=== PATIENT | male | born 1990 | race Caucasian/White ===

== ENCOUNTER 2020-12-18 21:10 | Emergency (ER) | payer OTHER ==
[~2020-12-18] VITALS: Ht 175.3 cm; Wt 79.4 kg
[2020-12-18 21:22] VITALS: BP 138/76
--- NOTE | 2020-12-18 21:22 | NUR ---
TO BED AMBULATORY
--- NOTE | 2020-12-18 21:30 | NUR ---
PT. IS A 30 Y/O MALE THAT CAME INTO ED WITH C/O OF DOG BITE ON RIGHT CALF. HE STATES THAT THE INCIDENT HAPPENED AROUND 6:45PM-6:50PM WHEN HE WAS AT WORK. ON THE PAIN SCALE, HE RATES IT 3/10. HE DESCRIBES THE PAIN THROBBING PAIN. UPON ASSESSMENT, RIGHT CALF 2 GASHES/SCRATCHES AND REDNESS. AAOX4 WITH EVEN AND STEADY GAIT; HR EVEN AND REGULAR; PT DENIES ANY FEVER, CP, SOB, OR COUGH AT THIS TIME; VSS; PATIENT POSITIONED FOR COMFORT; HOB ELEVATED; BEDRAILS UP X2; BED DOWN. ER MD MADE AWARE OF PT STATUS. PMH: ASTHMA, SPINA BIFIDA ALLERGIES: NKA
--- NOTE | 2020-12-18 22:25 | NUR ---
ANIMAL BITE REPORT FAXED TO [facility] IN [place], [place].
--- NOTE | 2020-12-18 22:31 | NUR ---
REFAXED ANIMAL BITE REPORT. FIRST FAX WAS BUSY.
--- NOTE | 2020-12-18 22:44 | NUR ---
DR. LEE AT BEDSIDE.
[2020-12-18] MEDS ORDERED: AMOXIL/CLAVULANATE 875/125 MG 1 TAB PO ONE (22:50)
[2020-12-18] MEDS ORDERED: IBUPROFEN 800 MG TAB PO ONE (22:50)
[2020-12-18] MEDS ORDERED: AMOX1TAB8 PO (22:58)
[2020-12-18 23:10] VITALS: BP 135/80
--- NOTE | 2020-12-18 23:10 | NUR ---
Patient discharged with v/s stable. Written and verbal after care instructions given and explained. Patient alert, oriented and verbalized understanding of instructions. Ambulatory with steady gait. All questions addressed prior to discharge. ID band removed. Patient advised to follow up with PMD. Rx of AMOXICILLIN/POTASSIUM CLAV given. Patient educated on indication of medication including possible reaction and side effects. Opportunity to ask questions provided and answered.
== END 2020-12-18 23:10 | disposition home or self-care (01) ==
LOC: MED 21:10
DX: S80.811A Abrasion, right lower leg, initial encounter (principal); J45.909 Unspecified asthma, uncomplicated; Z79.899 Other long term (current) drug therapy; W54.0XXA Bitten by dog, initial encounter; Y93.89 Activity, other specified; Y92.89 Other specified places as the place of occurrence of the external cause; Y99.8 Other external cause status
CPT/HCPCS: 90471; 90715; 99283

== ENCOUNTER 2023-06-18 09:09 | Day surgery (SDC) | payer OTHER ==
[~2023-06-18] VITALS: Ht 167.6 cm; Wt 72.6 kg
[~2023-06-18 09:09] MED LIST: AMOX-1230 PO
[2023-06-18] MEDS ORDERED: fentaNYL citrate 0.05 MG/ML VIAL ONE (11:35)
[2023-06-18] MEDS ORDERED: LIDOCAINE 2% 100 MG/5 ML UJET TP ONE (11:36)
[2023-06-18] MEDS ORDERED: fentaNYL citrate 0.05 MG/ML VIAL IVP ONE (12:55)
== END 2023-06-18 13:10 | disposition home or self-care (01) ==
LOC: MOR 09:09 → MMU 09:48 → MOR 13:10
PROVIDERS: ATTEND Internal Medicine Gastroenterology
DX: K62.5 Hemorrhage of anus and rectum (principal); K64.9 Unspecified hemorrhoids; J45.909 Unspecified asthma, uncomplicated; F41.9 Anxiety disorder, unspecified; F17.210 Nicotine dependence, cigarettes, uncomplicated; Z79.899 Other long term (current) drug therapy
CPT/HCPCS: 45378; J3010